=== PATIENT | female | born 2000 | race Caucasian/White ===

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

== ENCOUNTER 2023-01-01 21:49 | Emergency (ER) | payer MEDICAID ==
[2023-01-02] MEDS ORDERED: Metoclopramide 10 MG/2 ML SDV IM ONE (00:11)
[2023-01-02] MEDS ORDERED: Ketorolac 30 MG/ML SDV IM ONE (00:11)
[2023-01-02] MEDS ORDERED: diphenhydrAMINE 50 MG/ML SDV IM ONE (00:11)
== END 2023-01-02 01:42 | disposition home or self-care (01) ==
LOC: JD.ED 21:49
DX: G43.909 Migraine, unspecified, not intractable, without status migrainosus (principal); E66.9 Obesity, unspecified; Z68.37 Body mass index [BMI] 37.0-37.9, adult
CPT/HCPCS: 96372; 99283; J1200; J1885; J2765; 99282